=== PATIENT | female | born 1945 | race Caucasian/White ===

== ENCOUNTER 2020-10-27 14:55 | Inpatient (IN) | payer MEDICARE ==
[~2020-10-27] VITALS: Ht 170.2 cm; Wt 113.6 kg
[~2020-10-27 14:55] MED LIST: NORCO 5-325 TA1 EACH PO
[2020-10-27 16:53] LABS: BASOPHIL 1.3 % (0-2); EOSINOPHIL 2.6 % (0-7); HCT 40.2 % (37.0-47.0); HGB 12.6 g/dl (12.5-16.0); LYMPHOCYTE 13.9 % (15-48); MCH 31.3 pg (25.0-31.0); MCHC 31.3 g/dL (32.0-36.0); MONOCYTE 16.4 % (0-12); MPV 12.6 fL (6.0-9.5); NEUTROPHIL 65.5 % (41-80); NRBC 0; PLT 230 K/uL (150-400); RBC 4.02 M/uL (4.20-5.40); RDW 16.5 % (11.5-14.0); WBC 6.8 K/uL (4.0-10.5)
[2020-10-27 16:57] LABS: INR 4.94 (0.9-1.2); PROTHROMBIN TIME 44.8 SECONDS (11.8-13.4)
[2020-10-27 17:00] LABS: PTT 74.4 SECONDS (24.4-34.7)
[2020-10-27 17:14] LABS: ALBUMIN 3.3 g/dL (3.4-5.0); GLOBULIN (CALCULATION) 3.2 g/dL; MAGNESIUM 2.2 mg/dL (1.8-2.4); POTASSIUM 3.6 mmol/L (3.5-5.1); TOTAL PROTEIN 6.5 g/dL (6.4-8.2)
[2020-10-27 17:21] LABS: LACTIC ACID 2.2 mmol/L (0.4-1.9)
[2020-10-28] MEDS ORDERED: FOLIC ACID1 MG PO (01:37)
[2020-10-28] MEDS ORDERED: CYMBALTA 30MG C30 MG PO (01:37)
[2020-10-28] MEDS ORDERED: RHEUMATREX2.5 MG PO (01:38)
[2020-10-28] MEDS ORDERED: LASIX80 MG PO (01:38)
[2020-10-28] MEDS ORDERED: TOPROL XL 50 MG50 MG PO (01:39)
[2020-10-28] MEDS ORDERED: K-DUR20 MEQ PO (01:40)
[2020-10-28] MEDS ORDERED: ULTRAM50 MG PO (01:41)
[2020-10-28] MEDS ORDERED: COSENTYX P150 MG/1 M IM (01:41)
[2020-10-28] MEDS ORDERED: JANTOVEN5 MG PO (01:42)
[2020-10-28] MEDS ORDERED: PROAIR HFA8.5 GM INH (01:44)
[2020-10-28 06:02] LABS: BASOPHIL 1.2 % (0-2); EOSINOPHIL 1.4 % (0-7); HCT 41.2 % (37.0-47.0); HGB 13.2 g/dl (12.5-16.0); LYMPHOCYTE 7.8 % (15-48); MONOCYTE 14.5 % (0-12); MPV 12.2 fL (6.0-9.5); NEUTROPHIL 74.9 % (41-80); NRBC 0; PLT 224 K/uL (150-400); RBC 4.12 M/uL (4.20-5.40); RDW 16.5 % (11.5-14.0); WBC 8.5 K/uL (4.0-10.5)
[2020-10-28 06:11] LABS: PROTHROMBIN TIME 45.3 SECONDS (11.8-13.4)
[2020-10-28 06:30] LABS: ALBUMIN 3.1 g/dL (3.4-5.0); BILIRUBIN - TOTAL 1.3 mg/dL (0.2-1.0); BUN/CREAT RATIO (CALC) 13.4 RATIO; CREATININE 0.97 mg/dL (0.51-0.95); GLOBULIN (CALCULATION) 3.4 g/dL; MAGNESIUM 2.1 mg/dL (1.8-2.4); POTASSIUM 3.3 mmol/L (3.5-5.1); TOTAL PROTEIN 6.5 g/dL (6.4-8.2)
[2020-10-28 06:45] LABS: INR 5.01 (0.9-1.2)
[2020-10-28 12:22] LABS: POTASSIUM 3.9 mmol/L (3.5-5.1)
[2020-10-29 03:46] LABS: BASOPHIL 1.2 % (0-2); EOSINOPHIL 1.7 % (0-7); HCT 42.2 % (37.0-47.0); HGB 13.3 g/dl (12.5-16.0); LYMPHOCYTE 8.4 % (15-48); MCH 31.7 pg (25.0-31.0); MCHC 31.5 g/dL (32.0-36.0); MCV 100.5 fL (78.0-100.0); MONOCYTE 14.7 % (0-12); NEUTROPHIL 73.6 % (41-80); NRBC 0; PLT 237 K/uL (150-400); RDW 16.6 % (11.5-14.0)
[2020-10-29 03:57] LABS: INR 3.87 (0.9-1.2); PROTHROMBIN TIME 36.9 SECONDS (11.8-13.4)
[2020-10-29 04:13] LABS: ALBUMIN 3.3 g/dL (3.4-5.0); BILIRUBIN - TOTAL 1.4 mg/dL (0.2-1.0); GLOBULIN (CALCULATION) 2.9 g/dL; MAGNESIUM 2.1 mg/dL (1.8-2.4); PHOSPHORUS 2.7 mg/dL (2.6-4.7); POTASSIUM 3.5 mmol/L (3.5-5.1); TOTAL PROTEIN 6.2 g/dL (6.4-8.2)
[2020-10-29 04:19] LABS: PRO-BNP 7253 pg/mL (<450)
[2020-10-30 07:29] LABS: BASOPHIL 0.8 % (0-2); EOSINOPHIL 3.6 % (0-7); HCT 41.9 % (37.0-47.0); HGB 13.4 g/dl (12.5-16.0); LYMPHOCYTE 5.7 % (15-48); MCH 31.8 pg (25.0-31.0); MCV 99.3 fL (78.0-100.0); MONOCYTE 11.9 % (0-12); MPV 11.8 fL (6.0-9.5); NEUTROPHIL 77.6 % (41-80); NRBC 0; PLT 271 K/uL (150-400); RBC 4.22 M/uL (4.20-5.40); RDW 16.6 % (11.5-14.0); WBC 10.4 K/uL (4.0-10.5)
[2020-10-30 07:39] LABS: INR 2.98 (0.9-1.2)
[2020-10-30 07:52] LABS: ALBUMIN 3.4 g/dL (3.4-5.0); BILIRUBIN - TOTAL 1.8 mg/dL (0.2-1.0); BUN/CREAT RATIO (CALC) 11.5 RATIO; CREATININE 0.96 mg/dL (0.51-0.95); GLOBULIN (CALCULATION) 2.9 g/dL; MAGNESIUM 2.1 mg/dL (1.8-2.4); POTASSIUM 3.2 mmol/L (3.5-5.1); TOTAL PROTEIN 6.3 g/dL (6.4-8.2)
--- NOTE | 2020-10-30 15:54 | NUR ---
10/30/20 Ms. Poole and her spouse share a home together. Their son lives near by and is supportive. She has a linnette gonzalez and walk-in-tub. A referral was made to [facility] per patient choice; affliation understood.
[2020-10-31 06:14] LABS: BASOPHIL 1.1 % (0-2); EOSINOPHIL 6.4 % (0-7); HCT 39.4 % (37.0-47.0); HGB 12.6 g/dl (12.5-16.0); MCH 32.1 pg (25.0-31.0); MCV 100.3 fL (78.0-100.0); MONOCYTE 15.1 % (0-12); PLT 257 K/uL (150-400); RBC 3.93 M/uL (4.20-5.40); RDW 16.7 % (11.5-14.0); WBC 7.3 K/uL (4.0-10.5)
[2020-10-31 06:26] LABS: INR 2.43 (0.9-1.2); PROTHROMBIN TIME 25.5 SECONDS (11.8-13.4)
[2020-10-31 06:36] LABS: ALBUMIN 3.1 g/dL (3.4-5.0); BILIRUBIN - TOTAL 1.4 mg/dL (0.2-1.0); BUN/CREAT RATIO (CALC) 13.3 RATIO; CREATININE 0.83 mg/dL (0.51-0.95); GLOBULIN (CALCULATION) 2.8 g/dL; POTASSIUM 3.6 mmol/L (3.5-5.1); TOTAL PROTEIN 5.9 g/dL (6.4-8.2)
[2020-10-31 06:52] LABS: EOSINOPHIL(M) 7 % (0-7); LYMPHOCYTE(M) 7 % (15-48); MONOCYTE(M) 9 % (0-12); NEUTROPHILS(M) 73 % (41-80); NRBC 0; PLATELET ESTIMATE NORMAL; PLATELET MORPHOLOGY NORMAL; POLYCHROMASIA SLIGHT; TOTAL CELL COUNT 100; VARIANT LYMPHOCYTE 4
--- NOTE | 2020-10-31 12:04 | NUR ---
Spoke with patients sister, she states that per the family it is okay to reintubate patient if needed.
[2020-10-31] MEDS ORDERED: TOPROL XL 50 MG50 MG PO ×2 (12:27)
[2020-10-31] MEDS ORDERED: AMIODARONE HCL200 MG PO (12:27)
[2020-10-31] MEDS ORDERED: CARDIZEM CD180 MG PO (12:27)
--- NOTE | 2020-10-31 13:51 | NUR ---
10/31/20 [facility] was notified of discharge.
== END 2020-10-31 13:22 | disposition home health service (06) | DRG 308 ==
LOC: FER 14:55 → FTCU 19:37 → FICU 19:37 → FTCU 10-28 13:07
PROVIDERS: Emergency Medicine; Nurse Practitioner; Nurse Practitioner Family; ADMIT Internal Medicine
DX: I48.20 Chronic atrial fibrillation, unspecified (principal); I50.23 Acute on chronic systolic (congestive) heart failure; D68.59 Other primary thrombophilia; I11.0 Hypertensive heart disease with heart failure; E80.6 Other disorders of bilirubin metabolism; Z20.822 Contact with and (suspected) exposure to COVID-19; I27.20 Pulmonary hypertension, unspecified; I08.1 Rheumatic disorders of both mitral and tricuspid valves; I25.10 Atherosclerotic heart disease of native coronary artery without angina pectoris; E78.5 Hyperlipidemia, unspecified; M81.0 Age-related osteoporosis without current pathological fracture; Z90.710 Acquired absence of both cervix and uterus; Z98.890 Other specified postprocedural states; Z88.6 Allergy status to analgesic agent; Z88.8 Allergy status to other drugs, medicaments and biological substances; Z79.01 Long term (current) use of anticoagulants; Z87.891 Personal history of nicotine dependence; Z79.899 Other long term (current) drug therapy; Z87.440 Personal history of urinary (tract) infections
CPT/HCPCS: 36415; 71045; 80048; 80053; 80061; 82248; 82728; 83605; 83615; 83735; 83880; 84100; 84145; 84443; 84484; 85025; 85610; 85730; 86140; 93005; J0282; J1160; J1940; J7030; J7060; U0002

== ENCOUNTER 2021-03-01 12:16 | Emergency (ER) | payer MEDICARE ==
[~2021-03-01 12:16] MED LIST changes: +AMIODARONE HCL200 MG PO; +CARDIZEM CD180 MG PO; +COSENTYX P150 MG/1 M IM; +CYMBALTA 30MG C30 MG PO; +FOLIC ACID1 MG PO; +JANTOVEN5 MG PO; +K-DUR20 MEQ PO; +LASIX80 MG PO; +PROAIR HFA8.5 GM INH; +RHEUMATREX2.5 MG PO; +TOPROL XL 50 MG50 MG PO; +ULTRAM50 MG PO
[2021-03-01 13:30] LABS: BASOPHIL 0.6 % (0-2); EOSINOPHIL 2.9 % (0-7); HCT 39.6 % (37.0-47.0); HGB 12.5 g/dl (12.5-16.0); LYMPHOCYTE 15.1 % (15-48); MCH 30.9 pg (25.0-31.0); MCHC 31.6 g/dL (32.0-36.0); MCV 97.8 fL (78.0-100.0); MONOCYTE 13.9 % (0-12); MPV 12.5 fL (6.0-9.5); NEUTROPHIL 67.3 % (41-80); NRBC 0; PLT 165 K/uL (150-400); RBC 4.05 M/uL (4.20-5.40); RDW 18.1 % (11.5-14.0); WBC 4.8 K/uL (4.0-10.5)
[2021-03-01 15:14] LABS: ALBUMIN 3.7 g/dL (3.4-5.0); BILIRUBIN - TOTAL 0.7 mg/dL (0.2-1.0); CREATININE 1.44 mg/dL (0.51-0.95); GLOBULIN (CALCULATION) 3.7 g/dL; POTASSIUM 3.7 mmol/L (3.5-5.1); TOTAL PROTEIN 7.4 g/dL (6.4-8.2)
== END 2021-03-01 16:18 | disposition home or self-care (01) ==
LOC: FER 12:16
PROVIDERS: Emergency Medicine
DX: R00.1 Bradycardia, unspecified (principal); I10 Essential (primary) hypertension; E11.9 Type 2 diabetes mellitus without complications; Z88.8 Allergy status to other drugs, medicaments and biological substances
CPT/HCPCS: 36415; 71045; 80053; 84443; 84484; 85025; J7030

== ENCOUNTER 2021-08-11 14:48 | Emergency (ER) | payer MEDICARE ==
[2021-08-11 15:51] LABS: BASOPHIL 0.6 % (0-2); EOSINOPHIL 0.3 % (0-7); HCT 41.7 % (37.0-47.0); HGB 13.5 g/dl (12.5-16.0); LYMPHOCYTE 6.6 % (15-48); MCH 32.1 pg (25.0-31.0); MCHC 32.4 g/dL (32.0-36.0); MCV 99.3 fL (78.0-100.0); MONOCYTE 4.2 % (0-12); MPV 11.8 fL (6.0-9.5); NEUTROPHIL 88.1 % (41-80); NRBC 0; PLT 222 K/uL (150-400); RDW 14.6 % (11.5-14.0); WBC 6.2 K/uL (4.0-10.5)
[2021-08-11 16:08] LABS: ALBUMIN 3.6 g/dL (3.4-5.0); BILIRUBIN - TOTAL 0.6 mg/dL (0.2-1.0); BUN/CREAT RATIO (CALC) 12.5 RATIO; CREATININE 1.04 mg/dL (0.51-0.95); GLOBULIN (CALCULATION) 3.5 g/dL; POTASSIUM 3.8 mmol/L (3.5-5.1); TOTAL PROTEIN 7.1 g/dL (6.4-8.2)
[2021-08-11 16:48] LABS: BILIRUBIN NEGATIVE (NEGATIVE); BLOOD NEGATIVE Ery/uL (NEGATIVE); CLARITY CLEAR (CLEAR); COLOR YELLOW (YELLOW); GLUCOSE (U) NORMAL (NORMAL); LEUKOCYTES NEGATIVE Leu/uL (NEGATIVE); NITRITE NEGATIVE (NEGATIVE); PROTEIN TRACE (LOW) mg/dL (NEGATIVE); pH 8.5 (5.0-9.0)
[2021-08-11 16:58] LABS: BACTERIA 4+
[2021-08-11] MEDS ORDERED: ONDANSETRON ODT4 MG PO (18:44)
[2021-08-11] MEDS ORDERED: CEPHALEXIN500 MG PO (18:44)
== END 2021-08-11 19:38 | disposition home or self-care (01) ==
LOC: FER 14:48
PROVIDERS: Emergency Medicine
DX: R10.11 Right upper quadrant pain (principal); R10.12 Left upper quadrant pain; N39.0 Urinary tract infection, site not specified
CPT/HCPCS: 36415; 80053; 81001; 83690; 83880; 84484; 85025; 87076; 87088; 87186; J0696; J1170; J2405

== ENCOUNTER 2021-10-19 11:25 | Emergency (ER) | payer MEDICARE ==
[~2021-10-19 11:25] MED LIST changes: +CEPHALEXIN500 MG PO; +ONDANSETRON ODT4 MG PO
[2021-10-19 13:06] LABS: BASOPHIL 0.7 % (0-2); EOSINOPHIL 1.7 % (0-7); HCT 40.6 % (37.0-47.0); HGB 13.1 g/dl (12.5-16.0); LYMPHOCYTE 9.5 % (15-48); MCH 30.8 pg (25.0-31.0); MCHC 32.3 g/dL (32.0-36.0); MCV 95.3 fL (78.0-100.0); MPV 12.5 fL (6.0-9.5); NEUTROPHIL 76.8 % (41-80); NRBC 0; PLT 180 K/uL (150-400); RBC 4.26 M/uL (4.20-5.40); RDW 14.2 % (11.5-14.0); WBC 5.8 K/uL (4.0-10.5)
[2021-10-19 13:14] LABS: INR 2.51 (0.9-1.2); PROTHROMBIN TIME 26.2 SECONDS (11.9-13.9)
[2021-10-19 13:24] LABS: ALBUMIN 3.7 g/dL (3.4-5.0); BILIRUBIN - TOTAL 0.6 mg/dL (0.2-1.0); BUN/CREAT RATIO (CALC) 13.7 RATIO; CREATININE 1.17 mg/dL (0.51-0.95); GLOBULIN (CALCULATION) 3.6 g/dL; POTASSIUM 3.6 mmol/L (3.5-5.1); TOTAL PROTEIN 7.3 g/dL (6.4-8.2)
== END 2021-10-19 14:15 | disposition home or self-care (01) ==
LOC: FER 11:25
PROVIDERS: Emergency Medicine
DX: I48.0 Paroxysmal atrial fibrillation (principal); I10 Essential (primary) hypertension; Z79.01 Long term (current) use of anticoagulants; Z79.899 Other long term (current) drug therapy
CPT/HCPCS: 36415; 71045; 80053; 82553; 84484; 85025; 85610; 93005